=== PATIENT | female | born 1985 | race Caucasian/White ===

== ENCOUNTER → 2021-04-22 18:12 | Outpatient (CLI) | payer OTHER, SELFPAY ==
--- NOTE | 2021-04-22 18:19 | DI.RAD.S_ITS ---
PROCEDURE: XR FOOT LT MIN 3V INDICATIONS: L foot injury TECHNIQUE: Three views of the foot were acquired. COMPARISON: None. FINDINGS: Bones: Questionable cortical step-offs and incomplete lucencies along the medial aspect of the navicular. No displaced fragments are identified. There is moderate to severe hallux valgus deformity at the 1st MTP joint with mild degenerative changes. Mild hallux varus deformity at the 5th MTP joint. Fused os trigonum. Soft tissues: No tibiotalar joint effusion. Achilles tendon appears normal. IMPRESSION: 1. Questionable chronicity cortical step-offs involving the medial navicular. Per report, the patient has had previous injuries in this area. Immobilization and MR imaging of the foot is recommended to assess for bone edema indicating an acute fracture. Dictated by: Rosa Wong M.D. on 04/22/2021 at 19:05 Approved by: Rosa Wong M.D. on 04/22/2021 at 19:08
== END ==
PROVIDERS: Referring Provider Physician Assistant; Visit Provider Physician Assistant
DX: S99.922A Unspecified injury of left foot, initial encounter (principal); X58.XXXA Exposure to other specified factors, initial encounter
CPT/HCPCS: 73630

== ENCOUNTER → 2021-06-03 19:15 | Outpatient (CLI) | payer OTHER, SELFPAY | PROVIDERS: Visit Provider Physician Assistant | DX: N39.0 Urinary tract infection, site not specified (principal) | CPT/HCPCS: 87077; 87086; 87186 ==

== ENCOUNTER → 2021-07-31 16:32 | Outpatient (CLI) | payer OTHER, SELFPAY ==
[2021-07-31 18:38] LABS: Urine N gonorrhoeae NOT DETECTED
[2021-07-31 18:52] LABS: Urine Chlamydia NOT DETECTED
== END ==
PROVIDERS: Visit Provider Nurse Practitioner Family
DX: R30.0 Dysuria (principal); N89.8 Other specified noninflammatory disorders of vagina; Z11.3 Encounter for screening for infections with a predominantly sexual mode of transmission
CPT/HCPCS: 87077; 87086; 87186; 87210; 87491; 87591

== ENCOUNTER → 2021-09-24 12:50 | Outpatient (CLI) | payer OTHER, SELFPAY ==
[2021-09-24 13:13] LABS: Specimen Label NATERA
[2021-09-24 13:56] LABS: Add Manual Diff / Slide Review NO; Basophils Absolute Auto 0 /uL (0-100); Basophils Percent Auto 0.3 % (0-2); Eosinophils Absolute Auto 100 /uL (0-450); Eosinophils Percent Auto 1.1 % (2-4); Hematocrit 38.8 % (36-46); Hemoglobin 13.4 g/dL (12.0-16.0); Lymphocytes Absolute Auto 2000 /uL (1100-4500); Lymphocytes Percent Auto 24.6 % (25-40); Mean Corpuscular HGB Conc 34.4 % (30-36); Mean Corpuscular Hemoglobin 29.2 PG (26-34); Monocytes Absolute Auto 600 /uL (0-900); Monocytes Percent Auto 6.8 % (3-14); Neutrophils Absolute Auto 5500 /uL (1500-7000); Neutrophils Percent Auto 67.2 % (50-75); Platelet Count 252 X10^3/uL (150-400); Red Blood Cell Count 4.57 X10^6/uL (4.0-5.2); White Blood Cell Count 8.1 X10^3/uL (4.5-11.0)
[2021-09-24 14:48] LABS: Appearance Urine UA CLEAR; Bilirubin Urine UA NEGATIVE (NEGATIVE); Color Urine UA YELLOW; Glucose Urine UA NEGATIVE (Negative); Ketones Urine UA NEGATIVE (NEGATIVE); Leukocyte Esterase Urine UA TRACE (NEGATIVE); Nitrite Urine UA NEGATIVE (Negative); Occult Blood Urine UA NEGATIVE (Negative); Protein Urine UA NEGATIVE (Negative); Urobilinogen Urine UA 0.2 E.U./dL (0.2)
[2021-09-24 14:52] LABS: Bacteria Urine None Seen; RBC Urine None Seen (0-5/HPF); WBC Urine None Seen (0-5/HPF)
[2021-09-24 19:33] LABS: Hepatitis B Surface Antigen NEGATIVE s/c (NEGATIVE)
[2021-09-24 20:06] LABS: HIV 1 & 2 Ab/Ag 4th Gen Combo NEGATIVE (NEGATIVE); Hep C Virus Ab w/Reflex Quant NEGATIVE s/c (NEGATIVE)
[2021-09-25 05:12] LABS: HSV 2 IGG AB < 0.91 index (0.00-0.90); HSV1IGG < 0.91 index (0.00-0.90)
[2021-09-25 05:12] LABS: RPR Screen Non Reactive (Non Reactive)
[2021-09-25 11:42] LABS: Varicella IgG Antibody 800 index (Immune >165)
[2021-09-26 22:06] LABS: HSV I/II IgM 0.95 Ratio (0.00-0.90)
== END ==
PROVIDERS: Nurse Practitioner Family; Referring Provider Obstetrics & Gynecology; Visit Provider Obstetrics & Gynecology
DX: Z34.01 Encounter for supervision of normal first pregnancy, first trimester (principal); Z11.3 Encounter for screening for infections with a predominantly sexual mode of transmission
CPT/HCPCS: 36415; 80055; 81003; 81015; 86694; 86695; 86696; 86787; 86803; 86850; 86900; 86901; 87086; 87389

== ENCOUNTER → 2021-11-13 16:55 | Outpatient (CLI) | payer OTHER, SELFPAY ==
[2021-11-16 15:08] LABS: AFP Value 42.3 ng/mL (.); Gest Age on Col Date 17.1 weeks (.); Insulin Dep Diabetes No (.); OSBR Risk 1IN 10000 (.); Results Report (.); Test Results *Screen Negative* (.)
== END ==
PROVIDERS: Referring Provider Obstetrics & Gynecology; Visit Provider Obstetrics & Gynecology
DX: Z34.02 Encounter for supervision of normal first pregnancy, second trimester (principal); Z3A.17 17 weeks gestation of pregnancy
CPT/HCPCS: 36415; 82105

== ENCOUNTER → 2021-12-04 15:09 | Outpatient (CLI) | payer OTHER, SELFPAY ==
--- NOTE | 2021-12-04 15:11 | DI.US.S_ITS ---
PROCEDURE: US OB >= 14 WEEKS FETUS INDICATIONS: Anatomy scan OUTSIDE/PRIOR DATING DATA: Last menstrual period (LMP): 07/16/2021. LMP-based estimated date of delivery (SVETA): 04/22/2022. First dating scan (date and location): 09/18/2021. Estimated date of delivery (VSETA) from first dating scan: 04/22/2022. The calculations are made using the ultrasound SVETA of 04/22/2022. TECHNIQUE: Real-time scanning was performed of the fetus, with image documentation and biometric measurements. COMPARISON: 09/18/2021. FINDINGS: General: A single living intrauterine gestation is present. Presentation: Vertex. Placenta: Placental position is anterior, without previa. Amniotic fluid index: 15.7 cm, normal range is 5-24 cm. Single deepest vertical pocket is 4.2 cm. heart rate: 144 beats per minute. Maternal cervical canal: 2.8 cm long. Normal lower limit is 2.5 cm. biometrics: Biparietal diameter: 4.8 cm, 20 weeks 4 days Head circumference: 17.9 cm, 20 weeks 2 days Abdominal circumference: 15.6 cm, 22 weeks 5 days Femur length: 3.8 cm, 22 weeks 1 day. 95th percentile. Clinically estimated gestational age: 20 weeks 1 day Composite gestational age from present scan: 21 weeks 0 days Estimated weight and percentile: 409 g, 94th percentile Anatomic survey: Neuro: Ventricles are non-dilated at less than 10 mm. Cisterna magna is normal at 3-11 mm. Cerebellum is normal in size and morphology. Nuchal skin fold: Normal at less than 6 mm between 14-21 weeks gestational age. Face: Nose and lips, facial profile are normal. Spine: No evidence for spina bifida. Heart: 4-chambered heart is present, with normal ventricular outflow tracts. Diaphragm: Diaphragm is intact. Stomach: Left-sided stomach is present. Kidneys: No hydronephrosis. Normal is less than 5 mm in 2nd trimester, less than 7 mm in 3rd trimester. Cord: 3-vessel cord has orthotopic insertion. Bladder: Normal in size. Extremities: All 4 extremities identified. IMPRESSION: 1. Roper living intrauterine at 21 weeks 0 days based on today's ultrasound. Fetus is in the 94th percentile for weight. This raises the possibility of macrosomia. Consider follow-up OB ultrasound. 2. Normal placenta and amniotic fluid. 3. Normal and complete anatomic survey. We strive to produce accurate, complete, and clear reports of imaging services. To assist us in improving patient care, this report was composed using standard report templates and voice recognition software. Therefore, it may contain abnormal punctuation, insertions and/or omissions. Occasional wrong-word or sound-alike substitutions may occur. Though we review the report and make efforts to correct it, we do recommend that the report be read carefully in proper context to recognize any text inaccuracies. Dictated by: Pablo Sloan M.D. on 12/04/2021 at 20:49 Approved by: Pablo Sloan M.D. on 12/04/2021 at 20:53
== END ==
PROVIDERS: Referring Provider Obstetrics & Gynecology; Visit Provider Obstetrics & Gynecology
DX: Z34.92 Encounter for supervision of normal pregnancy, unspecified, second trimester (principal); Z3A.21 21 weeks gestation of pregnancy
CPT/HCPCS: 76811

== ENCOUNTER → 2022-01-01 11:35 | Outpatient (CLI) | payer OTHER, SELFPAY ==
[2022-01-01 13:16] LABS: Hematocrit 36.4 % (36-46); Hemoglobin 12.9 g/dL (12.0-16.0)
[2022-01-01 14:17] LABS: GTT (PREG) 1 Hour PP 50gm Dose 111 mg/dL (76-139)
[2022-01-02 07:31] LABS: HSV 2 IGG AB < 0.91 index (0.00-0.90); HSV1IGG < 0.91 index (0.00-0.90)
== END ==
PROVIDERS: Referring Provider Obstetrics & Gynecology; Visit Provider Obstetrics & Gynecology
DX: Z34.02 Encounter for supervision of normal first pregnancy, second trimester (principal); Z3A.26 26 weeks gestation of pregnancy
CPT/HCPCS: 36415; 82950; 85014; 85018; 86695; 86696; 86850

== ENCOUNTER → 2022-01-20 17:01 | Outpatient (CLI) | payer OTHER, SELFPAY ==
--- NOTE | 2022-01-20 17:11 | DI.RAD.S_ITS ---
PROCEDURE: XR SKULL MIN 4V INDICATIONS: direct blow to her face and nose TECHNIQUE: 4 view(s) of the skull acquired. COMPARISON: None. FINDINGS: Bones: No fractures. No suspicious bony lesions. Visualized sinuses appear clear. Soft tissues: No soft tissue calcifications. No suspicious soft tissue densities. IMPRESSION: No facial bone fracture. Dictated by: Scott Carmichael M.D. on 01/21/2022 at 10:45 Approved by: Scott Carmichael M.D. on 01/21/2022 at 10:47
== END ==
PROVIDERS: Referring Provider Physician Assistant Medical; Visit Provider Physician Assistant Medical
DX: S09.92XA Unspecified injury of nose, initial encounter (principal); H57.11 Ocular pain, right eye; X58.XXXA Exposure to other specified factors, initial encounter
CPT/HCPCS: 70260

== ENCOUNTER → 2022-03-25 14:49 | Outpatient (CLI) | payer OTHER, SELFPAY ==
[2022-03-26 14:04] LABS: Strep Grp B PCR NEG for Grp B Strep
== END ==
PROVIDERS: Visit Provider Obstetrics & Gynecology
DX: Z34.03 Encounter for supervision of normal first pregnancy, third trimester (principal); Z3A.36 36 weeks gestation of pregnancy
CPT/HCPCS: 87653

== ENCOUNTER 2022-04-14 19:30 | Inpatient (IN) | payer OTHER, SELFPAY ==
[2022-04-14 20:36] VITALS: BP 134/82
[2022-04-14] MEDS: DINOPROSTONE VAG (CERVIDIL) 10 MG VAG (20:55)
[2022-04-14 21:33] LABS: Add Manual Diff / Slide Review NO; Basophils Absolute Auto 100 /uL (0-100); Basophils Percent Auto 0.8 % (0-2); Eosinophils Absolute Auto 100 /uL (0-450); Hematocrit 37.6 % (36-46); Hemoglobin 13.3 g/dL (12.0-16.0); Lymphocytes Absolute Auto 1900 /uL (1100-4500); Lymphocytes Percent Auto 17.2 % (25-40); Mean Corpuscular HGB Conc 35.4 % (30-36); Mean Corpuscular Volume 84.9 fL (80-100); Monocytes Absolute Auto 1000 /uL (0-900); Monocytes Percent Auto 8.9 % (3-14); Neutrophils Absolute Auto 7900 /uL (1500-7000); Neutrophils Percent Auto 72.1 % (50-75); Platelet Count 218 X10^3/uL (150-400); Red Blood Cell Count 4.42 X10^6/uL (4.0-5.2); White Blood Cell Count 10.9 X10^3/uL (4.5-11.0)
--- NOTE | 2022-04-14 21:50 | P.HPOB_ITS ---
OB HPI Date/Time Date of admission: 04/14/22 Date Patient Seen: 04/14/22 Time Patient Seen: 21:50 History of Present Condition Chief complaint: Induction SVETA Calculator Estimated Delivery Date Method Current WG Current Estimate 04/22/22 LMP (Certain) 38w 6d Other Estimates 04/22/22 Ultrasound #1 38w 6d Estimated Gestational Age (weeks): 39 : 1 Para: 0 care: good care, initiated at week # (9), number of visits (11) and pounds weight gain (50) Dating criteria OB: LMP confirmed by 1st trimester US Ultrasounds: normal 1st trimester US and normal mid trimester US Obstetrical complications: none Medical complications OB: none Indications Indication for induction OB: other (AMA) Preadmission Labs Last OB Lab Results: Blood Type O Negative 09/24/21 12:55 Antibody Screen Negative 01/01/22 12:58 Hematocrit 37.6 % (36-46) 04/14/22 21:15 Hemoglobin 13.3 g/dL (12.0-16.0) 04/14/22 21:15 Hepatitis B Surface Antigen Negative s/c (NEGATIVE) 09/24/21 12 :55 Hepatitis C Antibody Negative s/c (NEGATIVE) 09/24/21 12:54 Rubella Antibody 162.0 IU/mL (>15) 09/24/21 12:55 Varicella-Zoster IgG Antibody 800 index (Immune >165) 09/24/21 12:55 Glucose 1 Hour 111 mg/dL (76-139) 01/01/22 12:58 Group B Streptococcus (PCR) Neg for grp b strep 03/25/22 14:49 -: Chlamydia screen: negative, Gonorrhea screen: negative and Urine: negative -: PAP smear: Normal Genetic Screens: Cell-free DNA: Normal (normal female) and Alpha-fetoprotein: Normal External Labs -: Urine: negative Evaluation Evaluation Baseline heart rate: 135 Variability: Moderate (11-25) monitor accelerations: Present Monitor Decelerations: Absent Contraction Frequency (minutes): 5 Uterine Contraction Intensity: Mild Status: Category l Dilation (cm): 0 Effacement (%): 80 station: 0 Position of cervix: posterior Consistency: soft [facility] Medical History (Updated 02/07/22 @ 16:02 by [place] Daley MD) Chicken pox Foot fracture, left Migraine headache without aura Migraines Raynaud's disease Surgical History (Updated 09/04/21 @ 13:10 by Candice Soriano RN) [place] teeth extracted Family History (Updated 09/06/21 @ 13:28 by Liss Hinson) Grandmother Aneurysm Grandmother Lung cancer Father Leukemia Diabetes mellitus Squamous cell carcinoma of tongue Prostate cancer Hypertension Family/Other Prostate cancer Social History marital status: number of children: 0 household members: spouse lives independently: Yes housing: house pets and animals: Yes (2 large dogs) education level: college (Associate's degree) occupational status: employed (dental hygenist) current occupational exposures/hazards: No special miko needs: No seatbelt use: always helmet use: Yes water heater temp set < 120 deg: Yes working smoke detector in home: Yes fire extinguisher in home: Yes carbon monox detector in home: Yes firearms in home: No do you feel safe at home: Yes Smoking Status: Never smoker second hand exposure: No alcohol intake: former substance use type: does not use during the past year weight has: remained stable well-balanced diet: daily or most days daily servings fruits/ve-4 caffeine: Yes (Aware of 200mg limit) Type(s) of exercise: bicycling (mountain bike) and running Meds Home Medications and Allergies Home Medications Medication Instructions Recorded Confirmed Type prenat.vits,kana,ywi-ywrd-nvdox 1 tab PO DAILY 09/04/21 03/31/22 History Allergies Allergy/AdvReac Type Severity Reaction Status Date / Time antihistamine AdvReac Intermediate restless Uncoded 03/31/22 16:05 legs OB Exam Narrative Exam Narrative: Generally: Patient is sitting up in bed, no acute distress Lungs: Clear to auscultation bilaterally Cardiovascular: Regular rate and rhythm Fundal height: 39 cm Estimated weight: 7-1/2 lb Extremities: No edema Objective Labs 04/14/22 21:15 Labs: Laboratory Results - last 24 hr 04/14/22 21:15 WBC 10.9 RBC 4.42 Hgb 13.3 Hct 37.6 MCV 84.9 MCH 30.0 MCHC 35.4 RDW 14.0 Plt Count 218 Neut % (Auto) 72.1 Lymph % (Auto) 17.[address] [place] % (Auto) 8.9 Eos % (Auto) 1.0 L Baso % (Auto) 0.8 Neut # (Auto) 7900 H Lymph # (Auto) 1900 [place] # (Auto) 1000 H Eos # (Auto) 100 Baso # (Auto) 100 Assessment and Plan Assessment and Plan Assessment and Plan narrative: Assessment: 36-year-old 1 para 0 at estimated gestational age of 39 weeks for cervical ripening/induction of labor due to advanced maternal age GBS negative Plan: Cervidil placed Reassess cervix in the morning Time Spent with Patient Total time spent with greater than 50% in coordination of care (as documented) at patient's floor/unit and/or counseling patient:: 15-24 minutes
[2022-04-15] MEDS: fentaNYL 100 MCG/2 ML INJ 50 MCG IV ×3 (00:22→03:28)
[2022-04-15] MEDS: LACTATED RINGERS 1,000 ML 100 ML IV (01:29)
[2022-04-15] MEDS: ONDANSETRON 4 MG/2 ML INJ IV (03:03)
[2022-04-15] MEDS: LACTATED RINGERS 1,000 ML 999 ML IV ×3 (04:27→07:00)
[2022-04-15] MEDS: FENT 2MCG/ML BUPIV 0.125% EPI 200 MCG/100 ML PLAST..BAG 7.5 MCG EPIDURAL (04:47)
[2022-04-15] MEDS: ePHEDrine 50 MG/ML VIAL IV ×2 (06:09→06:19)
--- NOTE | 2022-04-15 08:04 | PM.OBPNLAB ---
Date/Time Date Patient Seen: 04/15/22 Time Patient Seen: 08:04 Pain Control Pain control: epidural Comments: Called to see patient for tachycardia, decreased nebt-ug-dird variability, and late decelerations. Patient received Cervidil x1 overnight. She received an epidural due to painful contractions. She progressed to 2 cm/90% effaced/0 station. She began having tachycardia with decreased jfte-dz-xybt variability and then recurrent late decelerations. Despite oxygen, position changes, and fluid bolus, the strip is nonreassuring. Pelvic Exam Dilation (cm): 2 Effacement (%): 90 station: 0 Amniotic membrane status: Intact Contractions Contractions on admission: irregular Monitor mode: External Contraction frequency (min): 5 Contraction duration (min): 1 Contraction intensity: Moderate Status status: Category l Heart Rate Baseline: 160 Monitor Accelerations: Absent Monitor Decelerations: Late Monitor Variability: Minimal Assessment and Plan Assessment: induction ongoing Plan: Comments: Assessment: 36-year-old 1 para 0 at 39 weeks gestation status post Cervidil Epidural in place Nonreassuring heart rate tracing, remote from delivery Plan: Primary low-transverse section The risks, benefits, and alternatives to the procedure were explained to the patient. The risks including bleeding, infection, injury to the bowel, bladder, or ureters. She understands these risks and agrees to proceed. A full par Q was held and consent form was signed. Consent to observe her signed
--- NOTE | 2022-04-15 08:07 | PM.PREOP ---
Pre-operative Note COVID-19 Criteria for continued procedure: Non-surgical alternatives not available or appropriate per current SOC Interval Note History & Physical reviewed/Exam performed by Physician: Yes Changes to H&P: No H&P completed within 30 days and has changed as indicated here:: 04/14/22
[2022-04-15] MEDS: CEFAZOLIN 2 GM/100 ML PREMIX 100 ML IV (08:21)
--- NOTE | 2022-04-15 08:44 | SUR.OPER ---
Supine on padded OR bed, head on pillow, arms secured on padded arm boards at <90 degrees abduction, legs uncrossed, safety belt at thigh, tape over blanket over lower legs. Bump under right flank
[2022-04-15 09:10] VITALS: BP 109/66; PULSE 76; RESP 17; TEMP 36.6; O2SAT 100
[2022-04-15 09:15] VITALS: BP 105/52; PULSE 67; RESP 18; O2SAT 100
[2022-04-15 09:20] VITALS: BP 106/55; PULSE 69; RESP 16; O2SAT 100
--- NOTE | 2022-04-15 09:24 | P.OP_ITS ---
Operative Date/Time/Diagnoses Date of procedure: 04/15/22 Time of procedure: 09:45 Pre-op diagnosis: Thirty-nine weeks gestation Nonreassuring heart rate tracing, remote from delivery Post-op diagnosis: same Procedure & Clinicians Procedure: Primary low-transverse section Same procedure as scheduled: Yes Indications: 39 weeks gestation Nonreassuring heart rate tracing, remote from delivery Surgeon: [place] Daley Click Yes if Unassisted: No Railroad Police: Rasta Duvall Reason for Railroad Police: The educational assistant teacher was necessary to retract upon entry into the abdomen and uterus. He assisted with fundal pressure with delivery of the . He assisted on closure with retraction and clipping of suture. He closed the contralateral fascia. Anesthesia Type: Epidural (With Duramorph) Operative Notes Findings: Live female in the direct occiput posterior presentation Normal uterus, tubes, and ovaries Thin meconium-stained amniotic fluid ?Supercoil? of the umbilical cord Closure Type: primary Specimen(s): cord blood, cord pH and placenta Intraoperative meds administered: Acetaminophen, Duramorph, Ketorolac and Pitocin Applied: Catheter (To continuous drainage) Estimated Blood Loss (mL): 250 Blood products transfused: none Procedure in detail: After informed consent was obtained, the patient was taken to the operating room where she was placed in the dorsal supine position with a leftward tilt. She was then prepped and draped in the usual sterile fashion. Once epidural analgesia was found to be adequate, a Pfannenstiel skin incision was made 2 fingerbreadths above the pubic symphysis and carried through to the underlying layer of fascia. The fascia was nicked in the midline and the incision extended bilaterally with the Leach scissors. The superior aspect of the fascial incision was grasped with the Jona clamps, elevated, and the underlying rectus muscles were dissected off sharply and bluntly. In a similar fashion the inferior aspect of the fascial incision was grasped with the Jona clamps, elevated, and the underlying rectus muscles dissected off sharply and bluntly. The rectus muscles were in the midline. The peritoneum was identified, grasped between 2 hemostats up high, and entered sharply with the Metzenbaum scissors. The bladder was found to be full and drainage was facilitated from above. The bladder blade was inserted. The vesical uterine peritoneum was grasped with a a pickup, and entered sharply with the Metzenbaum scissors. This incision was ex tended bilaterally, and a bladder flap created digitally. The bladder blade was reinserted. The uterus was incised in a transverse fashion with the scalpel. Upon entering the amniotic sac there was meconium-stained amniotic fluid. This incision was extended bluntly. The was delivered with vacuum assistance. The nose and mouth were suctioned with bulb suction. The remainder of the body delivered without difficulty. The cord was double clamped and cut and the was handed off to waiting RN/RT/Pediatrics. A piece of cord for cord pH was obtained. Cord bloods were obtained. Pitocin was given in the IV fluids. The placenta was expressed. The uterine incision was repaired with # 1 Chromic in a running interlocking fashion, and a second layer of the same suture was used for an imbricating layer. Hemostasis was achieved. The tubes and ovaries were examined and were found to be normal. The gutters were cleared of all clots and debris. The bladder flap was reapproximated using 2-0 Vicryl in a running fashion. The parietal peritoneum was closed using 2 0 Vicryl in a running fashion. The fascia was reapproximated using 0 Vicryl in a running fashion. Hemostasis was achieved in the subcutaneous layer using the Bovie. Five simple interrupted sutures with 2-0 Vicryl were placed to reapproximate the subcutaneous layer. The skin was closed with 4-0 Monocryl in a subcuticular fashion. Steri-Strips were placed. An Aquacel dressing was placed. The uterus was expressed of a small amount of old blood. The uterus was marked 1 cm below the umbilicus. Sponge, lap, and instrument counts were correct x2. The patient tolerated the procedure well, and was taken to PACU in stable condition. Urine output: 300 cc clear yellow IV fluids: 1000 cc of crystalloid Complications: none [place] Baby 1: Gender: Female Presentation: vertex Position: Occiput Posterior Placental Delivery Description: Expressed Cord Vessel Description: 3 Vessels and Other (supercoil of the umbilical cord ) score (1 min): 4 score (5 min): 6 score (10 min): 9 Post-operative Condition: stable Disposition: PACU Aftercare: routine postop
[2022-04-15 09:25] VITALS: PULSE 67; RESP 15; TEMP 36.6; O2SAT 100
--- NOTE | 2022-04-15 09:28 | SUR.PHASEI ---
Report called to Janel ESPINOSA
[2022-04-15] MEDS: ACETAMINOPHEN 325 MG TABLET 650 MG PO ×2 (10:49→20:19)
[2022-04-15] MEDS: KETOROLAC 30 MG/ML VIAL IV ×2 (14:44→20:57)
[2022-04-15] MEDS: NALBUPHINE 20 MG/ML AMPUL 5 MG IV (14:51)
[2022-04-15] MEDS: LANOLIN OINT 7 GM 1 APPLIC TOP (20:22)
[2022-04-16] MEDS: ACETAMINOPHEN 325 MG TABLET 650 MG PO ×4 (00:41→20:36)
[2022-04-16] MEDS: KETOROLAC 30 MG/ML VIAL IV (03:00)
[2022-04-16 07:26] LABS: Hemoglobin 11.5 g/dL (12.0-16.0)
[2022-04-16] MEDS: PRENATAL VIT,CALC/IRON/FOLIC 1 TABLET 1 TAB PO (09:08)
[2022-04-16] MEDS: DOCUSATE 100 MG CAPSULE PO (09:08)
[2022-04-16] MEDS: IBUPROFEN 600 MG TABLET PO ×3 (09:09→20:35)
[2022-04-16] MEDS: OXYCODONE IR 5 MG TABLET 10 MG PO (14:01)
[2022-04-16] MEDS: OXYCODONE IR 5 MG TABLET PO (22:25)
[2022-04-17] MEDS: ACETAMINOPHEN 325 MG TABLET 650 MG PO ×2 (02:43→08:41)
[2022-04-17] MEDS: IBUPROFEN 600 MG TABLET PO ×2 (02:43→08:42)
[2022-04-17] MEDS: OXYCODONE IR 5 MG TABLET PO ×3 (04:50→12:41)
[2022-04-17] MEDS: DOCUSATE 100 MG CAPSULE PO (08:41)
[2022-04-17] MEDS: PRENATAL VIT,CALC/IRON/FOLIC 1 TABLET 1 TAB PO (08:42)
[2022-04-17] MEDS: RHO(D) IMMUNE GLOBULIN 1,500 UNIT SYRINGE 1500 UNIT IM (12:26)
[2022-04-17 13:04] LABS: Appearance Urine UA CLEAR; Bilirubin Urine UA NEGATIVE (NEGATIVE); Color Urine UA YELLOW; Glucose Urine UA NEGATIVE (Negative); Ketones Urine UA NEGATIVE (NEGATIVE); Leukocyte Esterase Urine UA TRACE (NEGATIVE); Nitrite Urine UA NEGATIVE (Negative); Occult Blood Urine UA 2+ (Negative); Protein Urine UA NEGATIVE (Negative); Urobilinogen Urine UA 0.2 E.U./dL (0.2)
[2022-04-17 13:06] LABS: pH Urine UA 6.5 (4.5-8.0)
[2022-04-17 13:13] LABS: Bacteria Urine Moderate (10-30); Culture Indicated Urine Specimen Cultured; Mucus Urine 1+ (Negative); RBC Urine 10-30/HPF (0-5/HPF); Squamous Epithelial Cell Urine 1-5 /HPF (0-5/HPF); WBC Urine 1-5/HPF (0-5/HPF)
--- NOTE | 2022-04-18 13:10 | PM.OBPN.1 ---
Subjective - OB Subjective Patient comments: no complaints, pain well controlled, incisional pain and tolerating diet [place] baby status: doing well and nursing well feeding status: exclusively breast feeding Date Patient Seen: 04/16/22 Time Patient Seen: 10:45 Interval history: Patient is a 36-year-old 1 para 1 postop day # 1 status post primary section for a nonreassuring heart rate tracing, remote from delivery. Her [place] catheter was removed. She is having a little bit of bladder pain especially at the end of voiding. She is tolerating a diet. She is ambulating without assistance. No nausea or vomiting. is going well. Her bleeding is tapering. Exam Vital Signs (past 8 hours): Oxygen Delivery Method Room Air Narrative Exam Narrative: Generally: Patient is sitting up in bed, no acute distress Lungs: Clear to auscultation bilaterally Cardiovascular: Regular rate and rhythm Abdomen: Soft, appropriately tender Incision: Clean dry and intact with Aquacel dressing Extremities: Trace edema, negative Homans Objective Labs 04/16/22 06:45 Labs: Laboratory Results - last 24 hr 04/17/22 12:45 Urine RBC 10-30/hpf H Urine WBC 1-5/hpf Ur Squamous Epith Cells 1-5 /hpf Urine Bacteria Moderate (10-30) H Urine Mucus 1+ H Ur Culture Indicated? Specimen cultured Assessment & Plan Plan day: 1 plan OB: routine postop care Comments: Anticipate discharge to July 10, 2022 Urine sent for UA, C&S Time Spent With Patient Time: Total time spent is greater than 50% in coordination of care (as documented) at patient's floor/unit and/or counseling patient: Time with patient: 15-24 minutes
--- NOTE | 2022-04-18 13:13 | P.DS_ITS ---
Discharge Providers Provider Date of admission: 04/14/22 19:30 Discharge Date: 04/18/22 Consults: 04/14/22 20:36 Consult to Anesthesiology Urgent Comment: Consulting Provider: [place] Daley Reason for consultation: Epidural 04/15/22 09:43 Consult to Automobile Or Truck Rental Dispatcher Routine Comment: Discharge provider: [place] Daley MD Summary Hospital Course Date Patient Seen: 04/17/22 Time Patient Seen: 10:30 Diagnoses: Thirty-nine weeks gestation Cervical ripening with Cervidil Nonreassuring heart rate tracing Early labor Primary low-transverse section Hospital Course: Patient is a 36-year-old 1 para 1 who presented on April 14, 2022 for Cervidil cervical ripening. She received 1 Cervidil. On the morning of April 15, 2022 the patient was found to have decreased kodq-md-vpld variability with recurrent late decelerations. She was found to be only 2 cm and 90% effaced. A decision was made to proceed with a primary low-transverse section. She underwent this procedure without complication. Her postoperative course was unremarkable. She is discharged home on postop day #2. She is tolerating a diet. She is ambulating independently. Her pain is well controlled. is going well. Her bleeding is tapering. She has no nausea or vomiting. Peripartum Data Infant Delivery Method: Emergency Section Procedures: Cervidil cervical ripening Epidural analgesia Primary low-transverse section complications: none 1: Gender: Female Disposition of : home Status at Discharge Cognitive/behavioral status at discharge: oriented Functional status at discharge: independent ambulation Overall status at discharge: patient is progressing back to baseline Time Spent with Patient Time attestation: Total time spent providing and/or coordinating discharge services: Time spent: Less than 30 minutes Objective Labs 04/16/22 06:45 Labs: Laboratory Results - last 24 hr 04/17/22 12:45 Urine RBC 10-30/hpf H Urine WBC 1-5/hpf Ur Squamous Epith Cells 1-5 /hpf Urine Bacteria Moderate (10-30) H Urine Mucus 1+ H Ur Culture Indicated? Specimen cultured Exam Vital Signs (past 8 hours): Oxygen Delivery Method Room Air Narrative Exam Narrative: Generally: Patient is sitting up in bed, no acute distress Lungs: Clear to auscultation bilaterally Cardiovascular: Regular rate and rhythm Fundus: Firm at U -2 Abdomen: Soft and flat Incision: Clean dry and intact with Aquacel dressing Extremities: Trace edema, negative Homans Discharge Plan Discharge Plan Patient Disposition: Home Provider Discharge Comment: Call with fever, chills, redness or drainage around the incision or bleeding vaginally more than a pad in an hour Ibuprofen 600 mg every 6 hours as needed Tylenol 650 mg every 6 hours as needed Docusate stool softener once or twice a day until bowel returns to normal Push oral fluids Discharge orders & Medications Prescriptions: New oxycodone 5 mg tablet 5 mg PO Q4H PRN (Reason: pain) Qty: 20 0RF Continued prenat.vits,kana,flo-unet-yruum Tablet 1 tab PO DAILY Tums tablet 500 mg Q4HR Follow up/Referrals: [place] Daley MD [Physician] - (My office will call on April 19, 2022 to schedule an Aquacel dressing removal this week) Diet/Activity/Treatments Diet: Regular Activity: No heavy lifting Skin/Wound/Dressing Care Report to your healthcare provider any signs of infection, such as:: chills, fever, increased pain, unusual drainage and unusual redness Dressing: Do not remove Visit Report/Discharge Packet Instructions: DI for , DI for Prescription Opioid Use Stand Alone Forms: Discharge: Care, Patient Portal/API, Stroke Signs & Symptoms
== END 2022-04-17 14:20 | disposition home or self-care (01) | DRG 788 ==
PROVIDERS: Admitting Provider Obstetrics & Gynecology; Referring Provider Obstetrics & Gynecology; Visit Provider Obstetrics & Gynecology
PROC: 10D00Z1 Extraction of Products of Conception, Low, Open Approach (ICD-10-PCS; CPT 59514; principal; 2022-04-15 08:00)
DX: O76 Abnormality in fetal heart rate and rhythm complicating labor and delivery (principal); Z3A.39 39 weeks gestation of pregnancy; Z37.0 Single live birth; Z67.41 Type O blood, Rh negative
CPT/HCPCS: 36415; 59200; 59510; 59514; 81001; 85014; 85018; 85025; 85461; 86850; 86870; 86900; 86901; 87086; G0379; J0690; J1885; J2274; J2300; J2405; J2590; J2790; J3010

== ENCOUNTER → 2022-05-27 16:28 | Outpatient (CLI) | payer OTHER, SELFPAY ==
[2022-05-27 18:00] LABS: Free T4, Direct Thyroxine 1.02 ng/dL (0.78-2.19)
[2022-05-27 18:14] LABS: Thyroid Stimulating Hormone 1.11 uIU/mL (0.47-4.68)
== END ==
PROVIDERS: Referring Provider Obstetrics & Gynecology; Visit Provider Obstetrics & Gynecology
DX: E04.9 Nontoxic goiter, unspecified (principal)
CPT/HCPCS: 36415; 84439; 84443

== ENCOUNTER → 2022-06-07 06:54 | Outpatient (CLI) | payer OTHER, SELFPAY ==
--- NOTE | 2022-06-07 06:55 | DI.US.S_ITS ---
PROCEDURE: US THYROID INDICATIONS: ENLARGED THYROID TECHNIQUE: Real-time scanning was performed of the thyroid gland, with image documentation. COMPARISON: None. FINDINGS: Right: Thyroid lobe measures 5.1 x 1.7 x 1.7 cm, and is mildly heterogeneous in echotexture. Left: Thyroid lobe measures 5.1 x 1.4 x 1.6 cm, and is mildly heterogeneous in echotexture. Isthmus: 1 mm thick. No thyroid nodules visualized. Possible gland hyperemia on Doppler images. IMPRESSION: 1. No thyroid nodules visualized. 2. Heterogeneous appearance of the thyroid gland with possible hyperemia on Doppler images, findings that can be seen in the setting of a thyroiditis. Dictated by: Jose Armando Vogel M.D. on 06/07/2022 at 9:08 Approved by: Jose Armando Vogel M.D. on 06/07/2022 at 9:10
== END ==
PROVIDERS: Referring Provider Obstetrics & Gynecology; Visit Provider Obstetrics & Gynecology
DX: E04.9 Nontoxic goiter, unspecified (principal)
CPT/HCPCS: 76536

== ENCOUNTER → 2024-05-25 14:27 | Outpatient (CLI) | payer OTHER, SELFPAY ==
[2024-05-25 20:45] LABS: Urine Chlamydia NOT DETECTED; Urine N gonorrhoeae NOT DETECTED
== END ==
PROVIDERS: Visit Provider Specialist
DX: Z11.3 Encounter for screening for infections with a predominantly sexual mode of transmission (principal); Z3A.01 Less than 8 weeks gestation of pregnancy
CPT/HCPCS: 87491; 87591

== ENCOUNTER → 2024-06-08 11:13 | Outpatient (CLI) | payer OTHER, SELFPAY ==
[2024-06-08 12:23] LABS: Natera Collection Specimen Collected
[2024-06-08 12:54] LABS: Add Manual Diff / Slide Review NO; Basophils Absolute Auto 0 /uL (0-100); Basophils Percent Auto 0.3 % (0-2); Eosinophils Absolute Auto 100 /uL (0-450); Eosinophils Percent Auto 0.8 % (2-4); Hematocrit 43.5 % (36-46); Hemoglobin 15.4 g/dL (12.0-16.0); Lymphocytes Absolute Auto 1700 /uL (1100-4500); Lymphocytes Percent Auto 22.2 % (25-40); Mean Corpuscular HGB Conc 35.5 % (30-36); Mean Corpuscular Hemoglobin 29.8 PG (26-34); Mean Corpuscular Volume 84.2 fL (80-100); Monocytes Absolute Auto 400 /uL (0-900); Monocytes Percent Auto 5.3 % (3-14); Neutrophils Absolute Auto 5500 /uL (1500-7000); Neutrophils Percent Auto 71.4 % (50-75); Platelet Count 273 X10^3/uL (150-400); Red Blood Cell Count 5.16 X10^6/uL (4.0-5.2); Red Cell Distribution Width 13.4 % (11.6-14.8); White Blood Cell Count 7.7 X10^3/uL (4.5-11.0)
[2024-06-08 13:37] LABS: Free T4, Direct Thyroxine 1.03 ng/dL (0.78-2.19)
[2024-06-08 14:01] LABS: HCG Quantitative /Beta subunit 141420 mIU/mL
[2024-06-09 05:36] LABS: RPR Screen Non Reactive (Non Reactive)
[2024-06-09 16:23] LABS: HIV 1 & 2 Ab/Ag 4th Gen Combo NEGATIVE (NEGATIVE); Hep C Virus Ab w/Reflex Quant NEGATIVE s/c (NEGATIVE); Hepatitis B Surface Antigen NEGATIVE s/c (NEGATIVE)
[2024-06-11 14:38] LABS: Varicella IgG Antibody Reactive (Non Reactive)
== END ==
PROVIDERS: Obstetrics & Gynecology; Referring Provider Specialist; Visit Provider Specialist
DX: O09.521 Supervision of elderly multigravida, first trimester (principal); E01.0 Iodine-deficiency related diffuse (endemic) goiter; Z3A.10 10 weeks gestation of pregnancy; Z32.01 Encounter for pregnancy test, result positive
CPT/HCPCS: 36415; 80055; 84439; 84443; 84702; 86787; 86803; 86850; 86900; 86901; 87086; 87389

== ENCOUNTER → 2024-07-20 14:58 | Outpatient (CLI) | payer OTHER, SELFPAY ==
[2024-07-24 20:38] LABS: AFP Value 18.7 ng/mL (.); Gest Age on Col Date 15.9 weeks (.); Insulin Dep Diabetes No (.); OSBR Risk 1IN 10000 (.); Results Report (.); Test Results *Screen Negative* (.)
== END ==
PROVIDERS: Referring Provider Obstetrics & Gynecology; Visit Provider Obstetrics & Gynecology
DX: Z34.92 Encounter for supervision of normal pregnancy, unspecified, second trimester (principal); Z3A.16 16 weeks gestation of pregnancy
CPT/HCPCS: 36415; 82105

== ENCOUNTER → 2024-08-17 13:00 | Outpatient (CLI) | payer OTHER, SELFPAY ==
--- NOTE | 2024-08-17 13:03 | DI.US.S_ITS ---
PROCEDURE: US OB >= 14 WEEKS FETUS INDICATIONS: 20 week anatomy scan OUTSIDE/PRIOR DATING DATA: Working [facility]ETA: 01/05/2025 TECHNIQUE: Real-time scanning was performed of the fetus, with image documentation and biometric measurements. Endovaginal scanning: Not performed COMPARISON: [facility], , OB >= 14 WEEKS FETUS, 06/22/2024, 14:07. FINDINGS: General: A single living intrauterine gestation is present. Presentation: Variable. Placenta: Placental position is posterior , without previa. Amniotic fluid index: 17 cm, normal range is 5-24 cm. Single deepest vertical pocket is 5.2 cm. heart rate: 147 beats per minute. Maternal cervical canal: 3.4 cm long. Normal lower limit is 2.5 cm. biometrics: Biparietal diameter: 4.8 cm, 20 weeks 4 days Head circumference: 18.1 cm, 20 weeks 3 days Abdominal circumference: 15.5 cm, 20 weeks 5 days Femur length: 3.3 cm, 20 weeks 2 days Clinically estimated gestational age: 19 weeks 6 days Composite gestational age from present scan: 20 weeks 4 days Estimated weight and percentile: 358 g, 81 percentile Anatomic survey: Neuro: Ventricles are non-dilated at less than 10 mm. Cisterna magna is normal at 3-11 mm. Cerebellum is normal in size and morphology. Nuchal skin fold: Normal at less than 6 mm between 14-21 weeks gestational age. Face: Nose and lips, facial profile are normal. Spine: No evidence for spina bifida. Heart: 4-chambered heart is present, with normal ventricular outflow tracts. Diaphragm: Diaphragm is intact. Stomach: Left-sided stomach is present. Kidneys: No hydronephrosis. Normal is less than 5 mm in 2nd trimester, less than 7 mm in 3rd trimester. Cord: 3-vessel cord has orthotopic insertion. Bladder: Normal in size. Extremities: All 4 extremities identified. IMPRESSION: Single living intrauterine at 19 weeks 6 days, SVETA of 01/05/2025. Estimated weight of 358 g, 81 percentile. Normal anatomy survey. We strive to produce accurate, complete, and clear reports of imaging services. To assist us in improving patient care, this report was composed using standard report templates and voice recognition software. Therefore, it may contain abnormal punctuation, insertions and/or omissions. Occasional wrong-word or sound-alike substitutions may occur. Though we review the report and make efforts to correct it, we do recommend that the report be read carefully in proper context to recognize any text inaccuracies. Dictated by: Jude Triana M.D. on 08/17/2024 at 15:43 Approved by: Jude Triana M.D. on 08/17/2024 at 15:45
== END ==
PROVIDERS: Referring Provider Obstetrics & Gynecology; Visit Provider Obstetrics & Gynecology
DX: Z36.89 Encounter for other specified antenatal screening (principal); Z3A.19 19 weeks gestation of pregnancy
CPT/HCPCS: 76811